=== PATIENT | male | born 1980 | race Caucasian/White ===

== ENCOUNTER 2019-05-08 08:24 | Day surgery (SDC) | payer OTHER, SELFPAY ==
[2019-05-05 16:39] VITALS: BMI 33.6
--- NOTE | 2019-05-08 | MASS_PTH ---
PATIENT: CLEMENCIA LESLIE [place] [facility] [place][id number] AGE/SX: 38/M ROOM: RE05/08/[address]: Dr. Talat Yo MD : 1980 BED: DIS: 05/08/2019 SPEC #: [id number] RECD: 05/08/19 14:32 STATUS: CARLOS ALBERTO JAMIN #: [id number] DOMINIC: 05/08/19 00:[address]: Talat Yo DEPT: SURGICAL PATHOLOGY RECD BY: Alonzo Oliveira ENTERED: 05/08/19 14:32 SP TYPE: Mass OTHR DR: MD Matthew Taveras MD Tissues: Chest wall, NOS Procedures: Surgery Specimen Level III HEADER OPERATION: Excision painful infected soft tissue mass lower chest wall PRE-OP DIAGNOSIS: Painful infected soft tissue mass right lower chest wall inferior to nipple TISSUE SUBMITTED: Soft tissue mass right lower chest wall inferior to nipple MICROSCOPIC DIAGNOSIS Soft tissue mass right lower chest wall, inferior to nipple, excision: Consistent with ruptured inflamed epidermal inclusion cyst with acute and chronic inflammation and foreign body giant cell reaction. SJ:nadia 05/09/19 MICROSCOPIC DESCRIPTION Slides are reviewed. GROSS DESCRIPTION Received in fixative is one container labeled with the patient's name and designated soft tissue mass right lower chest wall. The specimen consists of an ellipse of light hopper excised skin measuring 3 x 1 cm. Attached to this is irregular yellow fatty tissue measuring 4.5 x 3 x 1.5 cm. Serial sections do not reveal mass lesions. Family Law Paralegal sections are submitted in one cassette. / AM:nadia 05/08/19 TC:5 CPT: 01421
--- NOTE | 2019-05-08 07:27 | PCM.HP.BLA ---
History and Physical Date of Admission: 05/08/19 HISTORY OF PRESENT ILLNESS 38 year old man presents with a right lower chest wall mass that had increased in size over the last several weeks. Recently it became infected with increased redness, swelling, and pain. He denies fever. He denies trauma. He was started on Doxycycline with some improvement. The mass has decreased in size a little bit as the redness has also decreased in size as well. He denies any nipple drainage. He presents at this time for further evaluation and treatment. PAST MEDICAL HISTORY Frequent headaches GERD (gastroesophageal reflux disease) Gastrointestinal problem History of back problems PAST SURGICAL HISTORY Dermatofibroma ALLERGIES No Known Allergies MEDICATIONS ibuprofen pantoprazole Cider Vinegar [Apple Cider Vinegar] 6 Multivitamin with Minerals [Multiple Vitamin] ] Turmeric FAMILY HISTORY Son - Asthma, Anxiety Grandfather - Heart disease, Hypertension Other - Arthritis SOCIAL HISTORY Smoking Status: Current every day smoker Smokeless tobacco user: snuff alcohol intake: current REVIEW OF SYSTEMS General - Denies fever and weight loss. Has fatigue. Eyes - Denies cataracts and glaucoma. ENT - Denies nasal congestion and sore throat. Endocrine - Denies excessive thirst and urination. Skin - Denies skin cancer. Has recent infected right lower chest wall mass inferior to the nipple. Musculoskeletal - Has joint pain, joint stiffness, weakness of muscles and joints, and back pain. Denies arthritis. Neuro - Denies headaches. Cardiovascular - Denies chest pain, and shortness of breath with exertion. Has fatigue. Psych - Denies anxiety and depression. Respiratory - Denies chronic cough and shortness of breath. Gastrointestinal - Denies nausea, vomiting, diarrhea, and constipation. Hematologic - Denies abnormal bruising and bleeding. Genitourinary - Denies hematuria and urinary frequency. PHYSICAL EXAMINATION General - Alert and Oriented. HEENT - PERRL. EOMI. Throat is clear. Neck - Supple and nontender. No cervical adenopathy. Chest wall - There is a painful soft tissue mass right lower chest wall inferior to the nipple. Mobile. Some adherence of the overlying skin. Minimal cellulitis noted. No fluctuance. No purulent drainage. No ulceration. Mild tenderness to palpation. Measures 2.5 cm. Lungs - Clear to auscultation. Heart - Regular rate and rhythm. Abdomen - Soft and nondistended. Extremities - FROM. No axillary adenopathy. Radial pulses are palpable. Neuro - CN II-XII grossly intact. Psych - Normal mood and affect. ASSESSMENT 1. 2.5 cm painful infected right lower chest wall mass abscess inferior to the nipple. 2. Former smoker. PLAN There has been improvement with decreased redness, decreased, swelling, and decreased pain since starting Doxycycline. With the improved symptomatology, now is a good time to have this right lower chest wall mass excised and removed. Will send the mass to Pathology for analysis to rule out carcinoma. Will also send tissue to Microbiology for culture. A positive culture will necessitate continuation of his antibiotics. Surgery can be done under local anesthesia and IV sedation on an outpatient basis. Should be able to close the wound in a layered fashion. If the mass extends to the underlying chest wall, then a drain would be necessary. If pus is seen, then would leave the wound open and proceed with local wound care with Silver dressing. May also use a VAC as well which only requires a dressing change 3 days per week as well. If there is a plateau in the healing process, can proceed with delayed closure with skin grafting or skin flap reconstruction or secondary wound closure Anticipate increased metabolic demands from the infection and from the surgery. Will check a Prealbumin and encourage nutritional supplementation with protein to help the healing process. Patient was informed of the risks and complications of the procedure including alternatives to surgery. These were discussed with the patient personally. Patient voices understanding and wishes to proceed. Some of the risks and complications were included in a form from the [employer].
[2019-05-08 08:54] VITALS: BP 137/97; PULSE 72; RESP 14; TEMP 36.9; O2SAT 99; BMI 32.5
[2019-05-08] MEDS: Mupirocin Ointment 22gm Tube 1 APPLIC (10:20)
--- NOTE | 2019-05-08 10:36 | OP.PCM_ITS ---
Report of Operation Date of Procedure: 05/08/19 Pre-Operative Diagnosis: 1. 2.5 cm painful infected right lower chest wall mass abscess inferior to the nipple. 2. Former smoker. Post-Operative Diagnosis: Same. Surgery/Procedure Performed:: Excision 2.5 cm painful infected right lower chest wall mass inferior to the nipple with 5 cm layered closure. Description of Surgical Findings:: 38 year old man presents with a right lower chest wall mass that had increased in size over the last several weeks. Recently it became infected with increased redness, swelling, and pain. He denies fever. He denies trauma. He was started on Doxycycline with some improvement. The mass has decreased in size a little bit as the redness has also decreased in size as well. He denies any nipple drainage. Patient was informed of the risks and complications of the procedure including alternatives to surgery. These were discussed with the patient personally. Patient voices understanding and wishes to proceed. Some of the risks and complications were included in a form from the [employer]. I used Emily absorbable hemostat. Reference Number - [id number]. Lot Number - [id number]. Expiration - November 18, 2023. cardiopulmonary technician: None Type of Anesthesia:: Local MAC - xylocaine with epinephrine and IV sedation. Specimen's removed: Painful infected right lower chest wall mass abscess inferior to the nipple to Pathology and Microbiology. Drains: None. Estimated Blood Loss (mL): 10 ml. Description of Procedure: Patient was taken to OR in supine position and was given IV sedation. The right chest wall was prepped and draped in the usual fashion. SCD's were placed for DVT prophylaxis. Perioperative antibiotics were given intravenously. The soft tissue mass right chest wall was infiltrated with xylocaine and epinephrine. After waiting 5 minutes for the anesthetic to take effect, I made a horizontal elliptical incision to include the soft tissue mass since there was some adherence of the mass to the skin. It was previously infected last week and responded to antibiotics. Dissection was carried down into the subcutaneous tissue. The mass was located deeper toward the chest wall pectoralis muscle. There was surrounding scar tissue present that was adherent to the chest wall that was excised and debrided with the infected soft tissue mass. No pus was seen. Once excised, the infected mass was sent to Pathology for analysis to rule out carcinoma. A small portion of tissue was also sent to Microbiology for culture. A positive culture will necessitate antibiotic therapy. The wound was irrigated with saline. Hemostasis was obtained with electrocautery. I then sprayed Emily absorbable hemostat into the wound to minimize seroma formation postoperatively. The wound was not large enough to require a drain at this time. The wound was closed in multiple layered fashion with 3-0 Monocryl figure of eight interrupted sutures for the deep subcutaneous tissue to minimize the space. The deep dermis an subcutaneous tissue was approximated with 3-0 Monocryl interrupted sutures. The skin was approximated with 4-0 Prolene simple interrupted and vertical mattress interrupted sutures. Antibiotic ointment was applied to the suture line followed by a gauze compression dressing. The length of the layered closure was 5 cm. Patient tolerated the procedure well and was sent to PACU in satisfactory condition. Patient will be sent home on antibiotics and pain medication. Patient will followup in a week for a wound check and for discussion of the pathology report and for discussion of the Microbiology report. A positive culture will necessitate antibiotic therapy. I will remove the sutures in 2 weeks. Grafts/Implants Used: None. - Complications None. - Admit VTE Documentation VTE Present on Admission: No VTE Mechan Device Prophylaxis: SCD's VTE Pharm Prophylaxis ordered?: No Code Visit Surgery Charges CPT - 93895 ICD-10 - L02.213, R22.2, R20.8, Z87.891
[2019-05-08 10:39] VITALS: BP 121/78; BP 137/97; PULSE 85; RESP 16; TEMP 36.5; O2SAT 94
[2019-05-08 10:44] VITALS: BP 119/85; BP 137/97; PULSE 83; RESP 16; O2SAT 95
--- NOTE | 2019-05-08 10:45 | DCINST_ITS ---
You will use the following diet at home:: No restrictions Discharge Activity: May not drive while taking narcotic pain medications., May Shower - in two days., - - keep head elevated. no heavy lifting. May shower in (days): 2 May resume sexual activity in: No Restrictions Weight Bearing Status: Weight bearing as tolerated Lifting Restrictions: 20 lbs. Keep extremity elevated above heart level: - - elevate head. Call your doctor if your incision/area has: Continuous Slow Oozing, Sudden Increased Bleeding, Increased Pain/ Swelling, Increased Redness, Foul Smelling Discharge, Swelling at the incision site Call your doctor if you observe: Fever of 101 or Higher, Coldness, Increased Pain, Shortness of breath, Chest pain, Calf discomfort, Uncontrolled pain Suture Line Care: - - after dressing removed in two days, apply antibiotic ointment to suture line daily. Change Dressing in (Days):: 2 Cleanse incision/area with: - - may get incision wet in the shower in two days. Allergies/Adverse Reactions: Allergies No Known Allergies Allergy (Verified 05/06/19 15:42) Medications to take at Discharge pantoprazole 20 mg tablet,delayed release 20 mg PO DAILY 05/05/19 Cider Vinegar [Apple Cider Vinegar] 600 mg PO DAILY 05/06/19 Multivitamin with Minerals [Multiple Vitamin] 1 ea PO DAILY 05/06/19 Clindamycin HCl [Cleocin] 300 mg PO TID #42 cap 05/08/19 Diazepam [Valium] 5 mg PO BID PRN #10 tab 05/08/19 Oxycodone HCl/Acetaminophen [Percocet 5/325] 1 tab PO Q4H PRN PRN 7 Days #40 tab 05/08/19 proMETHazine tablet [Phenergan tablet] 25 mg PO 4X/DAY PRN PRN #30 tab 05/08/19 The following prescriptions were given: Clindamycin HCl [Cleocin] 300 mg PO TID #42 cap Prescription Printed Oxycodone HCl/Acetaminophen [Percocet 5/325] 1 tab PO Q4H PRN PRN 7 Days #40 tab PRN Reason: Pain Prescription Printed proMETHazine tablet [Phenergan tablet] 25 mg PO 4X/DAY PRN PRN #30 tab PRN Reason: Nausea Prescription Printed Diazepam [Valium] 5 mg PO BID PRN #10 tab PRN Reason: Spasms Prescription Printed Primary Care Physician: Matthew Barajas MD [Primary Care Provider] - Test Results: Test results from this visit will be discussed in further detail at your follow- up appointment, if applicable. Please Follow Up With: Talat Yo MD When: one week. call [phone] for appt. Proposed Discharge Date: 05/08/19
[2019-05-08 10:49] VITALS: BP 125/90; BP 137/97; PULSE 86; RESP 16; O2SAT 96
[2019-05-08 10:54] VITALS: BP 123/100; BP 137/97; PULSE 70; RESP 16; TEMP 36.2; O2SAT 96
[2019-05-08] MEDS: oxyCODONE 5 MG Tablet PO (11:18)
[2019-05-08] MEDS: Acetaminophen 325 MG Tablet PO (11:19)
[2019-05-08 12:20] VITALS: BP 137/97
== END 2019-05-08 12:30 | disposition home or self-care (01) ==
LOC: SDC 08:26 → AC 08:29
PROVIDERS: Family Provider Family Medicine; PCP Family Medicine; Referring Provider Surgery; Visit Provider Surgery
PROC: (CPT 11403; principal; 2019-05-08 09:40)
DX: L72.0 Epidermal cyst (principal); R22.2 Localized swelling, mass and lump, trunk; K21.9 Gastro-esophageal reflux disease without esophagitis; Z87.891 Personal history of nicotine dependence
CPT/HCPCS: 00300; 11403; 12032; 87070; 87075; 87102; 87176; 87205; 87206; 88304; 88305; J7120